=== PATIENT | female | born 1985 | race Caucasian/White ===

== ENCOUNTER 2017-03-27 21:42 | Emergency (ER) | payer OTHER ==
--- NOTE | 2017-03-27 22:06 | EDM.PDOC ---
ED HPI GENERAL MEDICAL PROBLEM - General Chief Complaint: General Stated Complaint: numb hands, 'cannot move', headache Time Seen by Provider: 03/27/17 21:50 Source of Information: Reports: Patient History Limitations: Reports: No Limitations - History of Present Illness INITIAL COMMENTS - FREE TEXT/NARRATIVE: Patient is a 31-year-old female who is seen in the emergency room with chief complaint of some numbness in her hands, she says sometimes his both hands ,at this time there is no numbness she also complains of headache which she describes as probably her worst headache ever, she does have pain in the right side of the face going around the eyes and down to her occipital area Onset: Today Duration: Hour(s):, Waxing/Waning Location: Reports: Head, Face Quality: Reports: Pressure Severity: Moderate Improves with: Reports: Rest Worsens with: Reports: None Context: Reports: Other Associated Symptoms: Reports: Headaches Temporal Headache Pain Score (Numeric/FACES): 3 - Related Data Allergies Allergy/AdvReac Type Severity Reaction Status Date / Time No Known Allergies Allergy Verified 03/27/17 21:45 Home Meds: Home Meds . 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 Lasik surgery Social & Family History - Tobacco Use Smoking Status *Q: Never Smoker Second Hand Smoke Exposure: No - Recreational Drug Use Recreational Drug Use: No ED ROS GENERAL - Review of Systems Review Of Systems: See Below Constitutional: Reports: No Symptoms HEENT: Reports: No Symptoms Respiratory: Reports: No Symptoms Cardiovascular: Reports: No Symptoms Endocrine: Reports: No Symptoms GI/Abdominal: Reports: No Symptoms : Reports: No Symptoms Musculoskeletal: Reports: No Symptoms Skin: Reports: No Symptoms Neurological: Reports: Headache Psychiatric: Reports: No Symptoms Hematologic/Lymphatic: Reports: No Symptoms Immunologic: Reports: No Symptoms ED EXAM, GENERAL - Physical Exam Exam: See Below Exam Limited By: No Limitations General Appearance: Alert, WD/WN, No Apparent Distress Eye Exam: Bilateral Eye: EOMI, PERRL Ears: Normal External Exam, Normal Canal, Hearing Grossly Normal, Normal TMs Nose: Normal Inspection, Normal Mucosa, No Blood Throat/Mouth: Normal Inspection, Normal Lips, Normal Teeth, Normal Gums, Normal Oropharynx, Normal Voice, No Airway Compromise Head: Atraumatic, Normocephalic Neck: Normal Inspection, Supple, Full Range of Motion, Tender Midline Respiratory/Chest: No Respiratory Distress, Lungs Clear, Normal Breath Sounds, No Accessory Muscle Use, Chest Non-Tender Cardiovascular: Normal Peripheral Pulses, Regular Rate, Rhythm, No Edema, No Gallop, No JVD, No Murmur, No Rub GI/Abdominal: Normal Bowel Sounds, Soft, Non-Tender, No Organomegaly, No Distention, No Abnormal Bruit, No Mass (Female) Exam: Deferred Rectal (Female) Exam: Deferred Back Exam: Normal Inspection, Full Range of Motion, NT Extremities: Normal Inspection, Normal Range of Motion, Non-Tender, Normal Capillary Refill, No Pedal Edema Neurological: Alert, Oriented, CN II-XII Intact, Normal Cognition, Normal Gait, Normal Reflexes, No Motor/Sensory Deficits Psychiatric: Normal Affect, Normal Mood Skin Exam: Warm, Dry, Intact, Normal Color, No Rash Course - Vital Signs Last Recorded V/S: Last Vital Signs Temp 99.2 F 03/27/17 22:18 Pulse 90 03/27/17 22:18 Resp 16 03/27/17 22:18 BP 94/79 03/27/17 22:18 Pulse Ox 99 03/27/17 22:18 - Orders/Labs/Meds Labs: Laboratory Tests 03/27/17 03/27/17 03/27/17 Range/Units 22:05 22:05 22:15 WBC 4.1 (4.0-10.2) K/uL RBC 4.41 (3.77-5.09) M/uL Hgb 12.6 (11.7-15.5) g/dL Hct 38.3 (34.0-46.0) % MCV 86.8 (84.0-98.0) fL MCH 28.6 (28.2-33.3) pg MCHC 32.9 (31.7-36.0) g/dL RDW 15.5 H (11.2-14.1) % Plt Count 188 (150-350) K/uL Neut % (Auto) 54.3 (45.0-80.0) % Lymph % (Auto) 34.3 (10.0-50.0) % Toole % (Auto) 9.0 (2.0-14.0) % Eos % (Auto) 1.7 (0.0-5.0) % Baso % (Auto) 0.7 (0.0-2.0) % Neut # (Auto) 2.23 (1.40-7.00) K/uL Lymph # (Auto) 1.41 (0.50-3.50) K/uL Toole # (Auto) 0.37 (0.00-1.00) K/uL Eos # (Auto) 0.07 (0.00-0.50) K/uL Baso # (Auto) 0.03 (0.00-0.20) K/uL Sodium 144 (136-145) mmol/L Potassium 3.3 L (3.5-5.1) mmol/L Chloride 108 H (98-107) mmol/L Carbon Dioxide 27.0 (21.0-32.0) mmol/L BUN 10 (7-18) mg/dL Creatinine 0.64 (0.51-1.17) mg/dL Est Cr Clr Drug Dosing 120.32 mL/min Estimated GFR (MDRD) > 60 mL/min Glucose 135 H (74-106) mg/dL Calcium 8.8 (8.5-10.1) mg/dL Specimen Type Urincc Urine Color Light yellow Urine Appearance Clear Urine pH 7.5 (5.0-9.0) Ur Specific Mcandrews 1.010 (1.005-1.030) Urine Protein Negative (NEGATIVE) mg/dL Urine Glucose (UA) Negative (NEGATIVE) mg/dL Urine Ketones Negative (NEGATIVE) mg/dL Urine Occult Blood Negative (NEGATIVE) Urine Nitrite Negative (NEGATIVE) Urine Bilirubin Negative (NEGATIVE) Urine Urobilinogen 0.2 (0.2-1.0) E.U./dL Ur Leukocyte Esterase Negative (NEGATIVE) Urine RBC 0-5 /HPF Urine WBC 0-5 /HPF Ur Epithelial Cells Few /LPF Urine Bacteria Rare (NONE TO FEW) /HPF Departure - Departure Time of Disposition: 23:08 Disposition: DC/Tfer W/I Hosp To Swing 61 Condition: Good Clinical Impression: Migraine Qualifiers: Migraine type: unspecified Status migrainosus presence: without status migrainosus Intractability: not intractable Qualified Code(s): G43.909 - Migraine, unspecified, not intractable, without status migrainosus - Discharge Information Instructions: Potassium Content of Foods Forms: ED Department Discharge Care Plan Goals: At this time CT was negative all symptoms resolved except the headaches will send her home on Flexeril 10 mg up to 3 times a day plus Motrin 200 mg 2 tablets every 6 hours as needed
[2017-03-27 22:21] VITALS: BP 94/79
[2017-03-27 22:27] LABS: CHLORIDE,CL 108 mmol/L (98-107); SODIUM,NA 144 mmol/L (136-145)
== END 2017-03-27 23:19 | disposition swing bed (61) ==
LOC: LL.ED 21:42
DX: G43.909 Migraine, unspecified, not intractable, without status migrainosus (principal)
CPT/HCPCS: 36415; 70450; 80048; 81001; 85025; 99284